=== PATIENT | male | born 2000 ===

== ENCOUNTER → 2023-08-30 | Outpatient (REF) | payer BC ==
[2023-08-30 18:26] LABS: THYROID PEROXIDASE ANTIBODY 334 U/ML (<60.0)
[2023-08-30 18:27] LABS: THYROGLOBULIN ANTIBODY > 500.0 U/ML (<60.0)
== END ==
LOC: M LAB REF 16:28
PROVIDERS: ATTEND Internal Medicine
DX: E03.9 Hypothyroidism, unspecified (principal)

== ENCOUNTER → 2024-01-17 | Outpatient (REF) | payer BC ==
[2024-01-17 13:21] LABS: THYROID PEROXIDASE ANTIBODY 258 U/ML (<60.0)
[2024-01-17 13:26] LABS: THYROGLOBULIN ANTIBODY > 500.0 U/ML (<60.0)
== END ==
LOC: M LAB REF 11:48
PROVIDERS: ATTEND Internal Medicine
DX: E06.9 Thyroiditis, unspecified (principal)

== ENCOUNTER → 2025-03-05 | Outpatient (REF) | payer BC, OTHER ==
[2025-03-05 15:32] LABS: THYROID PEROXIDASE ANTIBODY 158 U/ML (<60.0)
[2025-03-05 15:39] LABS: THYROGLOBULIN ANTIBODY > 500.0 U/ML (<60.0)
== END ==
LOC: M LAB REF 14:24
PROVIDERS: ATTEND Internal Medicine
DX: E06.3 Autoimmune thyroiditis (principal)

== ENCOUNTER → 2025-03-06 | Outpatient (REF) | payer OTHER | LOC: M LAB REF 17:42 | PROVIDERS: ATTEND Internal Medicine | DX: E06.3 Autoimmune thyroiditis (principal) ==